=== PATIENT | female | born 1995 | race Hispanic/Latino ===

== ENCOUNTER 2022-06-10 19:30 | Inpatient (IN) | payer BC ==
[2022-06-11 03:50] VITALS: BMI 32.7
[2022-06-11] MEDS ORDERED: hydrALAZINE 20 MG/ML VIAL SLOW IVP PRN (04:14)
[2022-06-11] MEDS ORDERED: Promethazine HCl 25 MG/ML VIAL IM PRN (04:14)
[2022-06-11] MEDS ORDERED: Lidocaine 1% (PF) 30 ML VIAL SC PRN (04:14)
[2022-06-11] MEDS ORDERED: Ondansetron PF 4 MG/2 ML Vial IVP PRN (04:14)
[2022-06-11] MEDS ORDERED: Methylergonovine 0.2 MG/ML VIAL IM PRN (04:15)
[2022-06-11] MEDS ORDERED: Butorphanol Tartrate 1 MG/ML VIAL SLOW IVP PRN (04:15)
[2022-06-11] MEDS ORDERED: Acetaminophen 500 MG TAB PO PRN (04:15)
[2022-06-11] MEDS ORDERED: NS w/ Oxytocin 30 units 500 ML IV SCH ×2 (04:15)
[2022-06-11] MEDS ORDERED: Misoprostol 200 MCG TAB PR PRN (04:15)
[2022-06-11] MEDS ORDERED: Diphenoxylate HCl/Atropine Tablet PO PRN (04:15)
[2022-06-11] MEDS ORDERED: Ibuprofen 800 MG TAB PO PRN (04:15)
[2022-06-11] MEDS ORDERED: Misoprostol 100 MCG TAB VAG SCH (04:15)
[2022-06-11] MEDS ORDERED: Carboprost 250 MCG/ML AMP IM PRN (04:15)
[2022-06-11] MEDS: Misoprostol 100 MCG TAB VAG SCH (05:34)
[2022-06-11 05:41] LABS: HBSAg Index 0.22 S/CO (0-0.99); Hep B Surf Ag Non-Reactive S/CO (NonReactive); Syphilis Antibody Nonreactive (Nonreactive); Syphilis Antibody Index 0.02 S/CO (<1.00 Non-Reactive)
[2022-06-11 06:00] LABS: Hemoglobin 13.4 g/dL (12.0-15.5); Mean Corpuscular HGB CONC 34.7 g/dL (32.0-36.0); Mean Corpuscular Hemoglobin 34.2 pg (27.0-33.0); Mean Corpuscular Volume 98.5 fl (81.6-98.3); Platelet Count 298 10x3/uL (150-450); RBC Distribution Width 13.6 % (11.5-14.5); Red Blood Cell (RBC) Count 3.92 10x6/uL (3.90-5.03); White Blood Cell (WBC) Count 16.2 10x3/uL (3.5-10.5)
[2022-06-11] MEDS ORDERED: Bupivacaine 0.25% HCL 30 ML VIAL ONE (14:11)
[2022-06-11] MEDS ORDERED: ePHEDrine Sulfate 50 MG/10 ML VIAL ONE (14:11)
[2022-06-12] MEDS: Misoprostol 100 MCG TAB VAG SCH ×3 (10:07→17:42)
[2022-06-12] MEDS: Lactated Ringer's 1,000 ML IV SCH ×2 (10:07→12:12)
[2022-06-12] MEDS ORDERED: Fentanyl 2 mcg/Bup 0.1% Cadd 100 ML ONE (19:12)
[2022-06-12] MEDS ORDERED: diphenhydrAMINE 50 MG/ML VIAL IVP PRN (19:55)
[2022-06-12] MEDS ORDERED: Naloxone HCl 0.4 mg/ml Vial IVP PRN ×2 (19:55)
[2022-06-12] MEDS ORDERED: Moisturizing Cream (Eucerin) 113 GM JAR TOP PRN (19:55)
[2022-06-12] MEDS ORDERED: ePHEDrine Sulfate 50 MG/10 ML VIAL SLOW IVP PRN (19:55)
[2022-06-12] MEDS ORDERED: Ondansetron PF 4 MG/2 ML Vial IVP PRN (19:55)
[2022-06-12] MEDS ORDERED: Promethazine HCl 25 MG/ML VIAL IM PRN (19:55)
[2022-06-12] MEDS ORDERED: Lactated Ringer's 500 ML IV PRN (19:55)
[2022-06-12] MEDS ORDERED: Fentanyl 2 mcg/Bupivacaine 0.1% Cassette 100 ML EPIDURAL SCH (20:00)
[2022-06-12] MEDS ORDERED: Communication Order-Pharmacy FS SCH (20:00)
[2022-06-13] MEDS: Acetaminophen 325 MG TAB PO PRN ×2 (06:31→12:33)
[2022-06-13] MEDS ORDERED: AMPicillin 2 MG in Syringe 0 ML SLOW IVP SCH (06:49)
[2022-06-13] MEDS ORDERED: Ampicillin 2 GM VIAL ONE (07:24)
[2022-06-13] MEDS: Ampicillin 2 GM VIAL SLOW IVP SCH ×2 (07:27→23:11)
[2022-06-13] MEDS ORDERED: Gentamicin 320 MG, Admixture Fee 1 EACH in Sodium Chloride 0.9% 100 ML IVPB SCH (07:30)
[2022-06-13] MEDS ORDERED: Tranexamic Acid 1,000 MG/10 ML VIAL ONE (09:15)
[2022-06-13] MEDS ORDERED: Misoprostol 200 MCG TAB ONE (09:15)
[2022-06-13] MEDS ORDERED: CEFAZOLIN 2 GM VIAL ONE (09:16)
[2022-06-13] MEDS ORDERED: Clindamycin/D5W 900 mg/50 ml Premix Bag ONE (09:16)
[2022-06-13] MEDS ORDERED: Carboprost 250 MCG/ML AMP ONE (09:16)
[2022-06-13] MEDS ORDERED: Methylergonovine 0.2 MG/ML VIAL ONE (09:17)
[2022-06-13] MEDS ORDERED: Sodium Chloride 0.9% 100 ML ONE (09:17)
[2022-06-13] MEDS ORDERED: Famotidine/PF 20 mg/2ml Vial ONE (09:17)
[2022-06-13] MEDS ORDERED: Famotidine/PF 20 mg/2ml Vial SLOW IVP PRN (09:20)
[2022-06-13] MEDS ORDERED: Bicitra 30 ML UDCUP PO PRN (09:20)
[2022-06-13] MEDS ORDERED: Carboprost 250 MCG/ML AMP IM PRN (09:29)
[2022-06-13] MEDS ORDERED: Methylergonovine 0.2 MG/ML VIAL IVP PRN (09:29)
[2022-06-13] MEDS ORDERED: Misoprostol 200 MCG TAB PR PRN ×2 (09:30→14:09)
[2022-06-13] MEDS ORDERED: Clindamycin/D5W 900 MG in Premix Bag 1 BAG IVPB SCH (09:30)
[2022-06-13] MEDS ORDERED: CEFAZOLIN 2 GM in Sodium Chloride 0.9% 100 ML IVPB SCH (09:30)
[2022-06-13] MEDS ORDERED: ePHEDrine Sulfate 50 MG/10 ML VIAL ONE (09:38)
[2022-06-13] MEDS ORDERED: Dexamethasone 4 mg/ml Vial ONE (09:38)
[2022-06-13] MEDS ORDERED: Morphine PF 10 MG/10 ML VIAL ONE (09:38)
[2022-06-13] MEDS ORDERED: Ondansetron PF 4 MG/2 ML Vial ONE (09:38)
[2022-06-13] MEDS ORDERED: Lidocaine 2% MPF 10 ML AMP (For Epidural Use) ONE ×2 (09:39→10:51)
[2022-06-13] MEDS ORDERED: Oxytocin 10 UNITS/ML VIAL ONE (09:39)
[2022-06-13] MEDS ORDERED: PHENYLEPHRINE-NS 100 MCG/ML 10 ML SYRINGE ONE (09:39)
[2022-06-13] MEDS ORDERED: Ketorolac Tromethamine 30 MG/ML VIAL ONE ×2 (09:39→11:47)
[2022-06-13] MEDS ORDERED: Tranexamic Acid 1,000 MG/10 ML VIAL IVP SCH (09:45)
[2022-06-13 09:57] LABS: Hemoglobin 12.2 g/dL (12.0-15.5); Mean Corpuscular HGB CONC 34.7 g/dL (32.0-36.0); Mean Corpuscular Hemoglobin 34.3 pg (27.0-33.0); Mean Corpuscular Volume 98.9 fl (81.6-98.3); Mean Platelet Volume 11.5 fl (7.4-10.4); Platelet Count 263 10x3/uL (150-450); RBC Distribution Width 13.5 % (11.5-14.5); Red Blood Cell (RBC) Count 3.56 10x6/uL (3.90-5.03); White Blood Cell (WBC) Count 25.1 10x3/uL (3.5-10.5)
[2022-06-13 09:58] LABS: MDiff Complete? YES
[2022-06-13] MEDS ORDERED: Fentanyl 100 MCG/2 ML VIAL ONE (10:17)
[2022-06-13] MEDS ORDERED: Midazolam HCl 2 mg/2 ml Vial ONE (10:53)
[2022-06-13 10:55] LABS: Band 15 % (5-11); Lymphocytes 3 % (21-51); Monocytes 4 % (0-10); Neutrophil 78 % (42-75)
[2022-06-13 10:56] LABS: Platelet Morphology Comment Appears Adequate
[2022-06-13 11:07] LABS: ALT (SGPT) 6 U/L (8-55); AST (SGOT) 13 U/L (5-34); Alkaline Phosphatase 118 U/L (40-110); Anion Gap 14 mmol/L (10-20); BUN (Urea Nitrogen) Less than 4 mg/dL (7.0-18.7); Bilirubin, Total 1.5 mg/dL (0.2-1.2); Calc. Creatinine Clearance 180 mL/min (70-130); Calcium 8.5 mg/dL (7.8-10.44); Carbon Dioxide 17 mmol/L (22-29); Chloride 101 mmol/L (98-107); Estimated GFR 125; Globulin 2.8 g/dL (2.4-3.5); Glucose 87 mg/dL (70-105); Potassium 3.6 mmol/L (3.5-5.1); Protein, Total 5.8 g/dL (6.0-8.3); Sodium 128 mmol/L (136-145)
[2022-06-13] MEDS ORDERED: Diphenoxylate HCl/Atropine Tablet PO SCH (11:15)
[2022-06-13] MEDS ORDERED: Diphenoxylate HCl/Atropine Tablet PO PRN (11:17)
[2022-06-13] MEDS ORDERED: Meperidine HCl/PF 25 MG/ML VIAL SLOW IVP PRN (11:33)
[2022-06-13] MEDS ORDERED: Ondansetron PF 4 MG/2 ML Vial IVP PRN ×2 (11:33→14:09)
[2022-06-13] MEDS ORDERED: diphenhydrAMINE 50 MG/ML VIAL IVP PRN (11:33)
[2022-06-13] MEDS ORDERED: Promethazine HCl 25 MG/ML VIAL IM PRN (11:33)
[2022-06-13] MEDS ORDERED: HYDROmorphone 2 MG/ML VIAL SLOW IVP PRN (11:33)
[2022-06-13] MEDS ORDERED: Moisturizing Cream (Eucerin) 113 GM JAR TOP PRN (11:33)
[2022-06-13] MEDS ORDERED: Fentanyl 100 MCG/2 ML VIAL SLOW IVP PRN (11:33)
[2022-06-13] MEDS ORDERED: Naloxone HCl 0.4 mg/ml Vial IVP PRN ×2 (11:33)
[2022-06-13] MEDS ORDERED: Naloxone HCl 0.4 mg/ml Vial IV PRN (11:33)
[2022-06-13] MEDS ORDERED: Promethazine HCl 25 MG SUPP PR PRN (11:33)
[2022-06-13] MEDS ORDERED: Ondansetron HCl/PF 4 MG/2 ML Vial IVP PRN (11:33)
[2022-06-13] MEDS ORDERED: Communication Order-Pharmacy FS SCH (11:45)
[2022-06-13] MEDS ORDERED: Measles/Mumps/Rubella 10 MCG/0.5 ML VIAL SC ONE (14:09)
[2022-06-13] MEDS ORDERED: Famotidine 20 MG TAB PO PRN (14:09)
[2022-06-13] MEDS ORDERED: Bisacodyl 10 MG SUPP PR PRN (14:09)
[2022-06-13] MEDS ORDERED: hydrALAZINE 20 MG/ML VIAL SLOW IVP PRN (14:09)
[2022-06-13] MEDS ORDERED: Furosemide 20 MG/2 ML VIAL SLOW IVP SCH (14:09)
[2022-06-13] MEDS ORDERED: Lanolin Ointment 7 GM TUBE TOP PRN (14:09)
[2022-06-13] MEDS ORDERED: Simethicone Chewable 80 MG TAB PO PRN (14:09)
[2022-06-13] MEDS ORDERED: Boostrix 0.5 ML (Tdap) VIAL (>/=7 yrs of age) IM ONE (14:09)
[2022-06-13] MEDS ORDERED: Acetaminophen 325 MG TAB PO PRN (14:09)
[2022-06-13] MEDS ORDERED: Varicella virus, LIVE 0.5 ML VIAL SC ONE (14:09)
[2022-06-13] MEDS: Ampicillin 2 GM in Sodium Chloride 0.9% 100 ML IVPB SCH ×2 (16:07→22:06)
[2022-06-13 18:28] LABS: ALT (SGPT) 7 U/L (8-55); AST (SGOT) 14 U/L (5-34); Alkaline Phosphatase 111 U/L (40-110); Anion Gap 14 mmol/L (10-20); BUN (Urea Nitrogen) 4 mg/dL (7.0-18.7); Bilirubin, Total 1.8 mg/dL (0.2-1.2); Calc. Creatinine Clearance 177 mL/min (70-130); Calcium 9.2 mg/dL (7.8-10.44); Carbon Dioxide 18 mmol/L (22-29); Chloride 105 mmol/L (98-107); Estimated GFR 125; Globulin 2.8 g/dL (2.4-3.5); Glucose 132 mg/dL (70-105); Protein, Total 5.8 g/dL (6.0-8.3); Sodium 133 mmol/L (136-145)
[2022-06-13] MEDS: Clindamycin/D5W 900 MG in Premix Bag 1 BAG IVPB SCH (18:31)
[2022-06-13] MEDS: Ibuprofen 800 MG TAB PO SCH (23:08)
[2022-06-13] MEDS: Docusate 100 MG CAP PO SCH (23:08)
[2022-06-13] MEDS: Ferrous Sulfate 325 MG TAB PO SCH (23:09)
[2022-06-13] MEDS: Misoprostol 100 MCG TAB VAG SCH ×2 (23:09→23:10)
[2022-06-13] MEDS: Lactated Ringer's 1,000 ML IV SCH (23:10)
[2022-06-13] MEDS ORDERED: HYDROcodone/Acetaminophen 5/325 mg Tablet PO PRN (23:45)
[2022-06-14] MEDS: Ibuprofen 800 MG TAB PO SCH ×3 (01:06→19:54)
[2022-06-14] MEDS: Clindamycin/D5W 900 MG in Premix Bag 1 BAG IVPB SCH ×3 (01:07→16:53)
[2022-06-14] MEDS: Ampicillin 2 GM in Sodium Chloride 0.9% 100 ML IVPB SCH ×4 (04:05→21:10)
[2022-06-14] MEDS: HYDROcodone/Acetaminophen 5/325 mg Tablet PO PRN ×2 (04:05→15:27)
[2022-06-14 05:53] LABS: ALT (SGPT) 6 U/L (8-55); AST (SGOT) 12 U/L (5-34); Albumin 2.6 g/dL (3.5-5.0); Alkaline Phosphatase 88 U/L (40-110); Anion Gap 11 mmol/L (10-20); BUN (Urea Nitrogen) 5 mg/dL (7.0-18.7); Bilirubin, Total 1.2 mg/dL (0.2-1.2); CRP (Inflammatory) 23.81 mg/dL (= or < 0.5); Calc. Creatinine Clearance 187 mL/min (70-130); Calcium 8.5 mg/dL (7.8-10.44); Carbon Dioxide 21 mmol/L (22-29); Chloride 106 mmol/L (98-107); Estimated GFR 126; Globulin 2.5 g/dL (2.4-3.5); Glucose 93 mg/dL (70-105); Potassium 3.4 mmol/L (3.5-5.1); Protein, Total 5.1 g/dL (6.0-8.3); Sodium 135 mmol/L (136-145)
[2022-06-14 06:00] LABS: Hemoglobin 10.7 g/dL (12.0-15.5); Mean Corpuscular HGB CONC 34.3 g/dL (32.0-36.0); Mean Corpuscular Hemoglobin 33.4 pg (27.0-33.0); Mean Corpuscular Volume 97.5 fl (81.6-98.3); Platelet Count 262 10x3/uL (150-450); RBC Distribution Width 13.7 % (11.5-14.5); White Blood Cell (WBC) Count 22.9 10x3/uL (3.5-10.5)
[2022-06-14 06:34] LABS: MDiff Complete? YES
[2022-06-14 06:39] LABS: Band 41 % (5-11); Eosinophils 5 % (0-10); Lymphocytes 13 % (21-51); Metamyelocyte 1 % (0-0); Monocytes 8 % (0-10); Neutrophil 32 % (42-75)
[2022-06-14 06:40] LABS: Platelet Morphology Comment Appears Adequate
[2022-06-14 06:42] LABS: RBC Morphology Normal
[2022-06-14] MEDS: Simethicone Chewable 80 MG TAB PO SCH ×5 (08:06→21:10)
[2022-06-14] MEDS: Docusate 100 MG CAP PO SCH ×2 (08:12→19:55)
[2022-06-14] MEDS: Prenatal Vitamin 1 TAB PO SCH (08:12)
[2022-06-14] MEDS: Gentamicin 320 MG, Admixture Fee 1 EACH in Sodium Chloride 0.9% 100 ML IVPB SCH (08:13)
[2022-06-14] MEDS: Ferrous Sulfate 325 MG TAB PO SCH ×2 (08:15→21:18)
[2022-06-15] MEDS: Clindamycin/D5W 900 MG in Premix Bag 1 BAG IVPB SCH ×3 (00:57→17:32)
[2022-06-15] MEDS: Ibuprofen 800 MG TAB PO SCH ×3 (03:57→19:41)
[2022-06-15] MEDS: Ampicillin 2 GM in Sodium Chloride 0.9% 100 ML IVPB SCH ×4 (03:58→21:57)
[2022-06-15] MEDS: Simethicone Chewable 80 MG TAB PO SCH ×6 (03:58→17:33)
[2022-06-15 05:15] LABS: Anion Gap 13 mmol/L (10-20); BUN (Urea Nitrogen) 10 mg/dL (7.0-18.7); CRP (Inflammatory) 18.33 mg/dL (= or < 0.5); Calc. Creatinine Clearance 193 mL/min (70-130); Calcium 8.5 mg/dL (7.8-10.44); Carbon Dioxide 22 mmol/L (22-29); Chloride 106 mmol/L (98-107); Estimated GFR 127; Glucose 75 mg/dL (70-105); Potassium 3.7 mmol/L (3.5-5.1); Sodium 137 mmol/L (136-145)
[2022-06-15] MEDS: Ferrous Sulfate 325 MG TAB PO SCH (07:23)
[2022-06-15 07:46] LABS: #Basophils 0.1 10x3/uL (0.0-0.2); #Eosinphils 1.4 10x3/uL (0.0-0.5); #Monocytes 1.2 10x3/uL (0.0-1.1); #Neutrophils 13.7 10x3/uL (1.5-8.4); %Basophils 0.7 % (0.0-2.0); %Eosinophils 7.2 % (0.0-6.0); %Lymphocytes 12.5 % (18.0-47.0); %Monocytes 6.2 % (0.0-10.0); %Neutrophils 72.6 % (40.0-75.0); Hemoglobin 10.2 g/dL (12.0-15.5); Mean Corpuscular HGB CONC 34.5 g/dL (32.0-36.0); Mean Corpuscular Hemoglobin 34.1 pg (27.0-33.0); Mean Platelet Volume 11.2 fl (7.4-10.4); Platelet Count 270 10x3/uL (150-450); RBC Distribution Width 13.8 % (11.5-14.5); Red Blood Cell (RBC) Count 2.99 10x6/uL (3.90-5.03); White Blood Cell (WBC) Count 18.9 10x3/uL (3.5-10.5)
[2022-06-15] MEDS: Prenatal Vitamin 1 TAB PO SCH (08:41)
[2022-06-15] MEDS: Gentamicin 320 MG, Admixture Fee 1 EACH in Sodium Chloride 0.9% 100 ML IVPB SCH (08:42)
[2022-06-15] MEDS: Docusate 100 MG CAP PO SCH ×2 (08:44→19:41)
[2022-06-15 20:57] VITALS: TEMP 98.7
[2022-06-16] MEDS: Ferrous Sulfate 325 MG TAB PO SCH ×2 (02:26→08:22)
[2022-06-16] MEDS: Clindamycin/D5W 900 MG in Premix Bag 1 BAG IVPB SCH ×2 (02:27→10:01)
[2022-06-16] MEDS: Ibuprofen 800 MG TAB PO SCH (03:34)
[2022-06-16] MEDS: Ampicillin 2 GM in Sodium Chloride 0.9% 100 ML IVPB SCH ×2 (03:35→10:01)
[2022-06-16] MEDS: Simethicone Chewable 80 MG TAB PO SCH ×3 (06:26→10:02)
[2022-06-16 07:50] VITALS: BP 112/61
[2022-06-16 08:17] LABS: #Basophils 0.1 10x3/uL (0.0-0.2); #Eosinphils 1.5 10x3/uL (0.0-0.5); #Monocytes 0.8 10x3/uL (0.0-1.1); #Neutrophils 9.2 10x3/uL (1.5-8.4); %Basophils 0.8 % (0.0-2.0); %Eosinophils 10.5 % (0.0-6.0); %Lymphocytes 16.3 % (18.0-47.0); %Monocytes 5.8 % (0.0-10.0); %Neutrophils 65.7 % (40.0-75.0); Hemoglobin 11.2 g/dL (12.0-15.5); Mean Corpuscular Hemoglobin 34.3 pg (27.0-33.0); Mean Corpuscular Volume 97.9 fl (81.6-98.3); Mean Platelet Volume 10.5 fl (7.4-10.4); Platelet Count 344 10x3/uL (150-450); RBC Distribution Width 13.6 % (11.5-14.5); Red Blood Cell (RBC) Count 3.27 10x6/uL (3.90-5.03); White Blood Cell (WBC) Count 13.9 10x3/uL (3.5-10.5)
[2022-06-16] MEDS: Gentamicin 320 MG, Admixture Fee 1 EACH in Sodium Chloride 0.9% 100 ML IVPB SCH (08:24)
[2022-06-16] MEDS: Docusate 100 MG CAP PO SCH (08:33)
[2022-06-16] MEDS: Prenatal Vitamin 1 TAB PO SCH (08:35)
== END 2022-06-16 13:41 | disposition home or self-care (01) | DRG 786 ==
LOC: CSHLD 06-11 03:03 → CSHPP 06-13 14:05
PROVIDERS: ADMIT Family Medicine; ATTEND Family Medicine
PROC: 3E033VJ Introduction of Other Hormone into Peripheral Vein, Percutaneous Approach (ICD-10-PCS; 2022-06-11)
PROC: 3E0DXGC Introduction of Other Therapeutic Substance into Mouth and Pharynx, External Approach (ICD-10-PCS; 2022-06-11)
PROC: 10H07YZ Insertion of Other Device into Products of Conception, Via Natural or Artificial Opening (ICD-10-PCS; 2022-06-12)
PROC: 0U7C7ZZ Dilation of Cervix, Via Natural or Artificial Opening (ICD-10-PCS; 2022-06-12)
PROC: 10D00Z1 Extraction of Products of Conception, Low, Open Approach (ICD-10-PCS; principal; 2022-06-13)
PROC: 0U9 Female Reproductive System, Drainage (ICD-10-PCS; 2022-06-13)
PROC: 0W3J0ZZ Control Bleeding in Pelvic Cavity, Open Approach (ICD-10-PCS; 2022-06-13)
PROC: 3E0334Z Introduction of Serum, Toxoid and Vaccine into Peripheral Vein, Percutaneous Approach (ICD-10-PCS; 2022-06-14)
DX: O24.425 Gestational diabetes mellitus in childbirth, controlled by oral hypoglycemic drugs (principal); O41.1230 Chorioamnionitis, third trimester, not applicable or unspecified; O72.1 Other immediate postpartum hemorrhage; E87.1 Hypo-osmolality and hyponatremia; O61.0 Failed medical induction of labor; Z3A.39 39 weeks gestation of pregnancy; Z37.0 Single live birth; O77.0 Labor and delivery complicated by meconium in amniotic fluid; E87.6 Hypokalemia; O42.02 Full-term premature rupture of membranes, onset of labor within 24 hours of rupture; O99.02 Anemia complicating childbirth; D64.9 Anemia, unspecified; O99.344 Other mental disorders complicating childbirth; F41.9 Anxiety disorder, unspecified; O99.214 Obesity complicating childbirth; E66.9 Obesity, unspecified
CPT/HCPCS: 36415; 36416; 51702; 80048; 80053; 85025; 85027; 85461; 86140; 86780; 86850; 86870; 86900; 86901; 87340; 88307; 90384; 96372; J0290; J0595; J0690; J1100; J1580; J1885; J1940; J2250; J2274; J2405; J2590; J3010; J3490; J7120; S0020; S0028